=== PATIENT | male | born 1975 | race Caucasian/White ===

== ENCOUNTER 2025-09-13 13:52 | Outpatient (CLI) | payer OTHER, SELFPAY ==
--- OUTSIDE RECORDS SUMMARY | 2003-05-14 09:00 | XMS_ITS | Continuity of Care Document ---
Author Organization [facility] Address [address] [place] [address] Phone Care Team Providers Care Press Tender Short Goods Name Role Phone Romano OD, Manny Unavailable Unavailable Advance Directives Directive Yes / No Effective Date File Name No Information Encounters Encounter Description Practice Location Reason(s) For Visit Diagnoses Date Provider Providers Copied on Encounter [facility], [address], [place], [place], [id number], [place] tel:[phone] [facility] No Information 1-200 3 Romano OD Manny. [address] , [address], [place], [address], [place]. tel:[phone] Family History Family Member Type Diagnosis Age At Onset No Information Payers Payer name Insurance type Covered alliance party ID Authoriza tion(s) No Information Social History Type Description Quantity Date Captured Comments Sex Male Smoking Status No Information Chief Complaint And Reason For Visit No Information Reason For Referral Reason For Referral No Information History Of Present Illness Encounter Date Complaint History Of Prese nt Illness No Information Functional Status Date Functional Assessmen t No Information Instructions Date Instruction Additional Infor mation No Information Assessments Type Assessment Date No Information Patient Care Teams Name Effective Dates (start - stop) Status Members No Information
--- NOTE | ~2025-09-13 | US_ITS ---
EXAMINATION: US soft tissue head and neck DATE: 09/13/2025 15:09 INDICATION: Localized swelling, mass or lump at the right submandibular region. TECHNIQUE: Multiple grayscale and Doppler ultrasound images were obtained of the right submandibular region of concern as well as of the contralateral left submandibular region for comparison. COMPARISON: None FINDINGS: Symmetric appearance to the submandibular glands which measure 2.6 x 1.4 cm on the right and 2.5 x 1.1 cm on the left. There is a normal sized 9 x 6 x 4 mm right cemented lymph node with normal central echogenic fatty hilum. No pathologically enlarged lymphadenopathy or other masses or fluid collections identified. IMPRESSION: 1. Normal ultrasound of the right submandibular region with symmetric bilateral submandibular glands are normal sized right submental lymph node. No pathologically enlarged lymph nodes or other abnormal masses or fluid collections identified. Reviewed, dictated and finalized at location A. IMPRESSION: 1. Normal ultrasound of the right submandibular region with symmetric bilateral submandibular glands are normal sized right submental lymph node. No pathologi jay jay enlarged lymph nodes or other abnormal masses or fluid collections identi fied.
== END 2025-09-13 13:53 | disposition home or self-care (01) ==
PROVIDERS: PCP Family Medicine; Visit Provider Nurse Practitioner Family
DX: R22.1 Localized swelling, mass and lump, neck (principal)
CPT/HCPCS: 76536